=== PATIENT | female | born 1930 | race Caucasian/White ===

== ENCOUNTER 2018-03-15 11:55 | Inpatient (IN) | payer MEDICARE, BC ==
[~2018-03-15] VITALS: Ht 162.6 cm; Wt 68.9 kg
--- NOTE | 2018-03-15 12:15 | NUR ---
PT IS IN ROOM #1A. DR NOWAK EVALUATED THE PT.
[2018-03-15] MEDS ORDERED: LORAZEPAM 2 MG/1 ML VIAL IV ONE (13:15)
[2018-03-15] MEDS ORDERED: IV NORMAL SALINE 1000 ML BAG IV ONE (13:15)
[2018-03-15] MEDS ORDERED: LORAZEPAM 2 MG/1 ML VIAL ONE (13:23)
[2018-03-15] MEDS ORDERED: PRESERVISION (13:32)
[2018-03-15] MEDS ORDERED: CALC-11 PO (13:32)
[2018-03-15] MEDS ORDERED: LORA0.5T PO (13:32)
[2018-03-15] MEDS ORDERED: SIMV10TA6 PO (13:32)
[2018-03-15] MEDS ORDERED: NEOM500T PO (13:32)
[2018-03-15] MEDS ORDERED: LOSA50TA21 PO (13:32)
[2018-03-15] MEDS ORDERED: ACET-2154 PO (13:32)
[2018-03-15] MEDS ORDERED: MIRALAX PO (13:32)
[2018-03-15] MEDS ORDERED: VITAMIN B12 PO (13:32)
[2018-03-15] MEDS ORDERED: CYPR4TAB34 PO (13:32)
[2018-03-15] MEDS ORDERED: LEVO88TA5 PO (13:32)
[2018-03-15] MEDS ORDERED: TRAZ-147 PO (13:32)
[2018-03-15] MEDS ORDERED: BISA10SU12 RC (13:32)
[2018-03-15 13:44] LABS: BASOPHILS # (AUTO) 0.1 K/uL (0.0-8.0); BASOPHILS % (AUTO) 1.2 % (0.0-2.0); EOSINOPHILS # (AUTO) 0.1 K/uL (0.0-0.7); EOSINOPHILS % (AUTO) 1.7 % (0.0-7.0); HEMATOCRIT 39.2 % (31.2-41.9); HEMOGLOBIN 13.6 g/dL (10.9-14.3); LYMPHOCYTES # (AUTO) 1.4 K/uL (20.0-40.0); LYMPHOCYTES % (AUTO) 23.4 % (20.5-51.5); MEAN CORPUSCULAR HEMOGLOBIN 31.2 uug (24.7-32.8); MEAN CORPUSCULAR HGB CONC 35 g/dL (32.3-35.6); MEAN CORPUSCULAR VOLUME 90.2 fL (75.5-95.3); MONOCYTES # (AUTO) 0.5 K/uL (2.0-10.0); MONOCYTES % (AUTO) 8.9 % (0.0-11.0); NEUTROPHILS # (AUTO) 3.9 K/uL (1.8-8.9); NEUTROPHILS % (AUTO) 64.8 % (38.5-71.5); PLATELET COUNT (AUTO) 185 K/uL (179-408); RED BLOOD CELL COUNT(AUTO) 4.35 MIL/uL (3.63-4.92); WHITE BLOOD COUNT (AUTO) 6.1 K/uL (3.8-11.8)
[2018-03-15 14:05] LABS: ALANINE AMINOTRANSFERASE 92 U/L (14-59); ALKALINE PHOSPHATASE 77 U/L (50-136); ASPARTATE AMINOTRANSFERASE 37 U/L (15-37); BILIRUBIN,DIRECT 0.3 mg/dL (0.0-0.2); CARBON DIOXIDE 26 mmol/L (21-32); CHLORIDE 107 mmol/L (98-107); CREATININE 1.1 mg/dL (0.6-1.3); GLUCOSE 103 mg/dL (74-106); UREA NITROGEN, BLOOD 16 mg/dL (7-18)
--- NOTE | 2018-03-15 14:48 | NUR ---
REPORT WAS GIVEN TO BRUSHER WARP. PT WAS TRANSFERED TO ROOM #205.
--- NOTE | 2018-03-15 15:30 | NUR ---
received from ER awake alert and oriented, per stretcher with c/o of abdominal pain and chest pain but states "none at this time after i was given medicine in er", tele applied SR 80's, on room air- denies of shortness of breath, routine admission care rendered, oriented to bed controls and room, safety measures provided, call light within reach
[2018-03-15 15:43] VITALS: BP 149/61
[2018-03-15] MEDS ORDERED: LORAZEPAM 0.5 MG TABLET PO PRN (17:00)
[2018-03-15] MEDS ORDERED: CYPROHEPTADINE HCL 4 MG TABLET PO SCH (17:00)
[2018-03-15] MEDS ORDERED: HOME MED MISCELLANEOUS XX SCH ×3 (17:15)
[2018-03-15] MEDS ORDERED: ONDANSETRON 4 MG/2 ML VIAL IV PRN (17:15)
[2018-03-15] MEDS ORDERED: ZOLPIDEM 5 MG TABLET PO PRN (17:15)
[2018-03-15] MEDS ORDERED: ACET-2030 PO (18:57)
[2018-03-15] MEDS ORDERED: POLY17PO4 PO (18:58)
[2018-03-15] MEDS: IV NS 1000 ML 1,000 ML IV PRN (19:34)
[2018-03-15 20:00] VITALS: BP 136/51
--- NOTE | 2018-03-15 20:00 | NUR ---
nsg: pt received a/ox 4, denies pain or any dicomfort. tele, SB. ambulatory with assistance. on cont ivf. call light within reach.
[2018-03-15] MEDS: SIMVASTATIN 10 MG TABLET PO SCH (20:37)
[2018-03-15] MEDS: TRAZODONE 100 MG TABLET PO SCH (20:37)
[2018-03-15] MEDS: ACETAMINOPHEN ES 500 MG TABLET PO SCH ×3 (20:37→22:45)
[2018-03-15] MEDS ORDERED: ACETAMINOPHEN 325 MG TABLET PO SCH (21:00)
[2018-03-15] MEDS ORDERED: ACETAMINOPHEN ES 500 MG TABLET ONE (22:41)
--- NOTE | 2018-03-15 23:30 | NUR ---
nsg: pt is very anxious, frustrated, received an order for ativan ivp. tele, SR. cont to monitor.
[2018-03-16] VITALS: BP 146/56
[2018-03-16] MEDS: LORAZEPAM 2 MG/1 ML VIAL IV PRN ×3 (00:07→15:03)
--- NOTE | 2018-03-16 00:07 | NUR ---
nsg: pt received 0.5mg ivp ativan due to severe anxiety. cont to monitor.
--- NOTE | 2018-03-16 01:00 | NUR ---
nsg: pt resting comfortably. SR charles.
[2018-03-16 05:06] VITALS: BP 144/63
--- NOTE | 2018-03-16 06:00 | NUR ---
nsg: all needs attended. pt still asleep. tele, SR. v/s stable. cont with treatment plan.
--- NOTE | 2018-03-16 06:36 | NUR ---
nsg: pt refused to take levothyroxine at this time. per pt will take med at a later time.
--- NOTE | 2018-03-16 07:15 | NUR ---
RECEIVED SHIFT REPORT FROM TELEGRAPHIC INSTRUMENT SUPERVISOR NURSE. PATIENT RESTING COMFORTABLY IN BED AT THIS TIME, NO S/S OF DISTRESS. STABLE CONDITION. INFORMED THAT PATIENT HAD SEVERE ANXIETY DURING THE TELEGRAPHIC INSTRUMENT SUPERVISOR AND ATIVAN IV 0.5 MG Q6HPRN WAS ORDERED, WHICH HELPED PATIENT CALM DOWN. BED ALARM IS ON, CALL LIGHT WITHIN REACH.
[2018-03-16] MEDS: LEVOTHYROXINE SODIUM 88 MCG TABLET PO SCH (07:31)
[2018-03-16 08:09] VITALS: BP 153/60
[2018-03-16] MEDS: CYANOCOBALAMIN 1,000 MCG TABLET PO SCH (08:11)
[2018-03-16] MEDS: MIRALAX 17 GM POWD.PACK PO SCH (08:11)
[2018-03-16] MEDS: CALCIUM CARB/VITAMIN D 600-400 MG TABLET PO SCH (08:11)
[2018-03-16] MEDS: ASPIRIN EC 81 MG TABLET.DR PO SCH (08:33)
[2018-03-16] MEDS ORDERED: LOSARTAN POTASSIUM 50 MG TABLET PO SCH (09:00)
[2018-03-16] MEDS ORDERED: NEOMYCIN SULFATE 500 MG TABLET PO SCH (09:00)
[2018-03-16 09:11] LABS: BASOPHILS # (AUTO) 0.1 K/uL (0.0-8.0); BASOPHILS % (AUTO) 1.4 % (0.0-2.0); EOSINOPHILS # (AUTO) 0.1 K/uL (0.0-0.7); EOSINOPHILS % (AUTO) 3.3 % (0.0-7.0); LYMPHOCYTES # (AUTO) 1.3 K/uL (20.0-40.0); LYMPHOCYTES % (AUTO) 33.6 % (20.5-51.5); MEAN CORPUSCULAR HEMOGLOBIN 30.9 uug (24.7-32.8); MEAN CORPUSCULAR HGB CONC 34 g/dL (32.3-35.6); MEAN CORPUSCULAR VOLUME 90.4 fL (75.5-95.3); MONOCYTES # (AUTO) 0.3 K/uL (2.0-10.0); MONOCYTES % (AUTO) 8.5 % (0.0-11.0); NEUTROPHILS # (AUTO) 2.1 K/uL (1.8-8.9); NEUTROPHILS % (AUTO) 53.2 % (38.5-71.5); PLATELET COUNT (AUTO) 159 K/uL (179-408); RED BLOOD CELL COUNT(AUTO) 4.21 MIL/uL (3.63-4.92); WHITE BLOOD COUNT (AUTO) 3.9 K/uL (3.8-11.8)
[2018-03-16 09:40] LABS: THYROID STIMULATING HORMONE 0.282 mIU/mL (0.358-3.740)
[2018-03-16 09:59] LABS: ALANINE AMINOTRANSFERASE 69 U/L (14-59); ALKALINE PHOSPHATASE 60 U/L (50-136); ASPARTATE AMINOTRANSFERASE 27 U/L (15-37); BILIRUBIN,TOTAL 0.7 mg/dL (0.2-1.0); CARBON DIOXIDE 24 mmol/L (21-32); CHLORIDE 107 mmol/L (98-107); GLUCOSE 110 mg/dL (74-106); POTASSIUM 3.7 mmol/L (3.5-5.1); UREA NITROGEN, BLOOD 14 mg/dL (7-18)
[2018-03-16 11:04] VITALS: BP 124/53
[2018-03-16 15:23] VITALS: BP_SYST 124; BP_SYST 138; BP_DIAS 53; BP_DIAS 87
[2018-03-16] MEDS: PANTOPRAZOLE SODIUM 40 MG TABLET.DR PO SCH (17:05)
[2018-03-16] MEDS: IV NS 1000 ML 1,000 ML IV PRN (19:10)
[2018-03-16 19:39] VITALS: BP 145/73
--- NOTE | 2018-03-16 20:00 | NUR ---
AWAKE ON AND OFF QUIET RESTING COMFORTABLY.BACK TO SLEEP. TELEMETRY SINUS RHYTHM.
[2018-03-16] MEDS: BISACODYL 10 MG SUPP.RECT RC SCH (20:13)
[2018-03-16] MEDS: TRAZODONE 100 MG TABLET PO SCH (20:13)
[2018-03-16] MEDS: SIMVASTATIN 10 MG TABLET PO SCH (20:13)
[2018-03-16 20:21] LABS: *BILIRUBIN,URIN NEGATIVE (NEGATIVE); *BLOOD, URINE NEGATIVE (NEGATIVE); *CLARITY,URINE CLEAR (CLEAR); *COLOR,URINE YELLOW (YELLOW); *KETONES,URINE NEGATIVE (NEGATIVE); *PROTEIN,URINE NEGATIVE (NEGATIVE); *UROBILINOGEN,URINE 0.2 E.U./dl (NORMAL); LEUKOCYTE ESTERASE ,URINE NEGATIVE (NEGATIVE); NITRITE, URINE NEGATIVE (NEGATIVE); UGLUCOSE NEGATIVE (NEGATIVE)
[2018-03-16 20:32] LABS: SQUAMOUS EPITHELIAL CELL,UR FEW /HPF (NONE SEEN); WBC,URINE 0-3 /HPF (0-3)
[2018-03-17] VITALS: BP 144/67
[2018-03-17] MEDS: LORAZEPAM 2 MG/1 ML VIAL IV PRN ×2 (02:50→08:55)
[2018-03-17 04:00] VITALS: BP 154/59
[2018-03-17] MEDS: PANTOPRAZOLE SODIUM 40 MG TABLET.DR PO SCH ×2 (06:32→16:49)
[2018-03-17] MEDS: LEVOTHYROXINE SODIUM 88 MCG TABLET PO SCH (06:32)
--- NOTE | 2018-03-17 07:10 | NUR ---
Received report from night shift supervisor nurse, patient in bed asleep, no distress noted at this time, bed in low position, side rails up x2. Call light in reach.
[2018-03-17] MEDS: CALCIUM CARB/VITAMIN D 600-400 MG TABLET PO SCH (08:51)
[2018-03-17] MEDS: LOSARTAN POTASSIUM 50 MG TABLET PO SCH ×2 (08:54→16:49)
[2018-03-17] MEDS: ASPIRIN EC 81 MG TABLET.DR PO SCH (08:55)
[2018-03-17] MEDS: MIRALAX 17 GM POWD.PACK PO SCH (08:55)
[2018-03-17] MEDS: CYANOCOBALAMIN 1,000 MCG TABLET PO SCH (08:55)
--- NOTE | 2018-03-17 09:30 | NUR ---
Patient is very anxious, yelling for help, and continuously asking for "medication that is put in her IV that was given to her in ER". Patient was given ativan.
[2018-03-17 11:04] VITALS: BP 136/64
[2018-03-17 15:18] VITALS: BP 141/56
[2018-03-17] MEDS: IV NS 1000 ML 1,000 ML IV PRN (16:44)
--- NOTE | 2018-03-17 17:46 | NUR ---
patient has been very anxious and requesting medication frequently to make her sleep. Patient complains of not getting any rest despite frequently napping. Currently patient in bed, no distress noted, eating dinner. bed in low position, side rails up x2.
--- NOTE | 2018-03-17 19:10 | NUR ---
RECIEVED PT ASLEEP ON BED. PT SHOWS NO SIGNS OF DISTRESS. PT IV INTACT AND PATENT. CALL LIGHT WITHIN REACH. BED ALARM ON AND IN LOW POSITION. WILL CONTINUE TO MONITOR.
[2018-03-17 20:12] VITALS: BP 125/60
[2018-03-17] MEDS: ACETAMINOPHEN ES 500 MG TABLET PO SCH (21:29)
[2018-03-17] MEDS: TRAZODONE 100 MG TABLET PO SCH (21:29)
[2018-03-17] MEDS: MIRTAZAPINE 15 MG TABLET PO SCH (21:29)
[2018-03-17] MEDS: SIMVASTATIN 10 MG TABLET PO SCH (21:29)
[2018-03-18] MEDS: QUETIAPINE FUMARATE 25 MG TABLET PO PRN ×2 (04:02→12:06)
[2018-03-18 05:18] VITALS: BP 130/62
--- NOTE | 2018-03-18 06:09 | NUR ---
PT SLEPT THROUGHOUT THE SHIFT. PT SHOWS NO SIGNS OF DISTRESS. PT VITAL SIGNS WITHIN NORMAL LIMIT. PRESCRIBED MEDICATION GIVEN AND PT TOLERATED IT WELL.PT WOKE UP AT 4AM ASKING FOR PAIN MEDICATION BECAUSE SHE STATE HER LEGS ARE ACHING AND SHE WAS AWAKE THE WHOLE NIGHT BECAUSE OF THE PAIN, BUT PT WAS SLEEPING THE WHOLE NIGHT. AT 520AM PT STATE SHE HAS A TERRIBLE SHOULDER PAIN BUT WHEN I GOT BACK TO HER, SHE IS SLEEPING SOUNDLY. NOTIFY DOCTOR OF THE PAIN OF THE PT AND ASK IF SHE WILL GIVE ORDER FOR PAIN MEDICATION. STILL AWAITING FOR THE DOCTOR REPLY. CALL LIGHT WITHIN REACH, BED ALARM ON AND IN LOW POSITION. SIDE RAILSX2. WILL ENDORSE TO DAYSHIFT NURSE.
[2018-03-18] MEDS: LEVOTHYROXINE SODIUM 88 MCG TABLET PO SCH (06:22)
[2018-03-18] MEDS: PANTOPRAZOLE SODIUM 40 MG TABLET.DR PO SCH ×2 (06:22→16:12)
--- NOTE | 2018-03-18 07:10 | NUR ---
Received report from casino shift manager nurse, patient in bed sleeping, no distress noted, bed in low position, side rails up x2.
[2018-03-18] MEDS: CYANOCOBALAMIN 1,000 MCG TABLET PO SCH (08:24)
[2018-03-18] MEDS: ASPIRIN EC 81 MG TABLET.DR PO SCH (08:24)
[2018-03-18] MEDS: CALCIUM CARB/VITAMIN D 600-400 MG TABLET PO SCH (08:24)
[2018-03-18] MEDS: LOSARTAN POTASSIUM 50 MG TABLET PO SCH ×2 (08:24→16:11)
[2018-03-18] MEDS: MIRALAX 17 GM POWD.PACK PO SCH (08:24)
[2018-03-18 11:26] VITALS: BP 132/66
[2018-03-18] MEDS ORDERED: MAG HYDROX/AL HYDROX/SIMETH 30 ML LIQUID UDC PO PRN (15:45)
[2018-03-18 15:46] VITALS: BP 137/80
[2018-03-18] MEDS: FAMOTIDINE 20 MG TABLET PO SCH (16:08)
--- NOTE | 2018-03-18 18:53 | NUR ---
Patient has been cooperative with care. She had two episodes where she had severe pain and anxiety. Contacted Dr. Almendarez, and received orders for pepcid and mylanta. Currently patient is in no distress, bed in low position, side rails up x2. Bed alarm Set.
[2018-03-18] MEDS: IV NS 1000 ML 1,000 ML IV PRN (19:02)
--- NOTE | 2018-03-18 19:05 | NUR ---
RECEIVED PT AWAKE, ALERT, ORIENTEDX3. PT SHOWS NO SIGNS OF ACUTE DISTRESS. PT VITAL SIGNS WITHIN NORMAL LIMIT. PT IV INTACT AND PATENT. CALL LIGHT WITHIN REACH. BED ALARM ON AND IN LOW POSITION, SIDE RAILSX2. WILL CONTINUE TO MONITOR.
[2018-03-18 20:15] VITALS: BP 132/41
[2018-03-18] MEDS: BISACODYL 10 MG SUPP.RECT RC SCH ×2 (21:00→21:12)
--- NOTE | 2018-03-18 21:10 | NUR ---
PT REFUSED MEDICATION FOR DULCOLAX SUPPOSITORY.
[2018-03-18] MEDS: ACETAMINOPHEN ES 500 MG TABLET PO SCH (21:12)
[2018-03-18] MEDS: TRAZODONE 100 MG TABLET PO SCH (21:12)
[2018-03-18] MEDS: SIMVASTATIN 10 MG TABLET PO SCH (21:12)
[2018-03-18] MEDS: MIRTAZAPINE 15 MG TABLET PO SCH (21:12)
[2018-03-19] MEDS: QUETIAPINE FUMARATE 25 MG TABLET PO PRN (03:49)
[2018-03-19 04:23] VITALS: BP 148/48
--- NOTE | 2018-03-19 06:19 | NUR ---
PT SLEPT THROUGHOUT THE SHIFT. PT SHOWS NO SIGNS OF DISTRESS. PT IV INTACT AND PATENT. PRESCRIBED MEDICATION GIVEN AND PT TOLERATED IT WELL. PT STABLE. CALL LIGHT WITHIN REACH. BED ALARM ON AND IN LOW POSITION, SIDE RAILSX2.PT IS WORRIED WHERE SHE WOULD STAY AND WHO WOULD TAKE CARE OF HER. WILL ENDORSE TO DAYSHIFT NURSE.
[2018-03-19] MEDS: LEVOTHYROXINE SODIUM 88 MCG TABLET PO SCH (06:22)
[2018-03-19] MEDS: PANTOPRAZOLE SODIUM 40 MG TABLET.DR PO SCH (06:22)
[2018-03-19] MEDS: ASPIRIN EC 81 MG TABLET.DR PO SCH (08:16)
[2018-03-19] MEDS: LOSARTAN POTASSIUM 50 MG TABLET PO SCH (08:17)
[2018-03-19] MEDS: MIRALAX 17 GM POWD.PACK PO SCH (08:17)
[2018-03-19] MEDS: CYANOCOBALAMIN 1,000 MCG TABLET PO SCH (08:17)
[2018-03-19] MEDS: CALCIUM CARB/VITAMIN D 600-400 MG TABLET PO SCH (08:17)
[2018-03-19] MEDS: FAMOTIDINE 20 MG TABLET PO SCH (08:17)
[2018-03-19] MEDS: BISACODYL 10 MG SUPP.RECT RC SCH (09:24)
[2018-03-19] MEDS ORDERED: MAGNESIUM CITRATE 296 ML BOTTLE PO ONE (10:30)
[2018-03-19 11:17] VITALS: BP 149/51
[2018-03-19 13:10] VITALS: BP 149/51
--- NOTE | 2018-03-19 13:30 | NUR ---
PT had a large bm from the mag citrate given earlier. Pt states she is more relieved. Pt D/C pt to [facility] as ordered per DR lu. Dennys son aware of d/c plan via child support case officer. Pt's iv d/c. Pt is in no acute distress upon discharge.
[2018-03-19] MEDS ORDERED: FAMO-132 PO (14:52)
[2018-03-19] MEDS ORDERED: MIRT15TA PO (15:05)
[2018-03-19] MEDS ORDERED: ASPI-605 PO (15:05)
[2018-03-19] MEDS ORDERED: QUET25TA PO (15:05)
[2018-03-19] MEDS ORDERED: PANT40TA2 PO (15:05)
[2018-03-20] MEDS ORDERED: QUETIAPINE FUMARATE 25 MG TABLET PO SCH (15:00)
[2018-03-20] MEDS ORDERED: MIRTAZAPINE 15 MG TABLET PO SCH (21:00)
== END 2018-03-19 13:45 | DRG 206 ==
LOC: ER 11:55 → TELE 14:40 → MED 03-17 10:30
PROVIDERS: ADMIT Internal Medicine; ATTEND Internal Medicine
DX: M94.0 Chondrocostal junction syndrome [Tietze] (principal); F33.1 Major depressive disorder, recurrent, moderate; F41.1 Generalized anxiety disorder; G47.00 Insomnia, unspecified; R10.13 Epigastric pain; Z88.0 Allergy status to penicillin; Z79.899 Other long term (current) drug therapy; Z88.2 Allergy status to sulfonamides; I10 Essential (primary) hypertension
CPT/HCPCS: 36415; 70030-TC; 71045; 82533; 84443; 85025; 85651; 85730; 93005; 93307; 97116; A4663; A9150; J2060; J7030

== ENCOUNTER 2018-03-19 14:28 | Inpatient (IN) | payer MEDICARE, BC ==
[~2018-03-19] VITALS: Ht 165.1 cm; Wt 69.4 kg
--- NOTE | 2018-03-19 14:05 | NUR ---
ADMISSION NOTES: 87 Y.O FEMALE BROUGHT TO MHU FROM MEDICAL SURGICAL UNIT VIA WHEELCHAIR, ACCOMPANIED BY MED SURG STAFF, Pt IS ADMITTED VOLUNTARILY. Pt WAS INITIALLY ADMITTED TO MEDICAL SURGICAL UNIT DUE TO COMPLAINTS OF CHEST PAIN. HOWEVER, NO NEGATIVE FINDINGS WERE NOTED DURING HER STAY IN THE UNIT. UPON PSYCHIATRIC EVALUATION, Pt STATED BEING ANXIOUS DUE TO CONSTANTLY BEING HOSPITALIZED AND THEY CANNOT DETERMINE THE REASONS FOR HER NECK PAIN. SHE REPORTED POOR ENERGY LEVELS AND INSOMNIA. UPON FACE TO FACE ASSESSMENT, Pt APPEARS TO REFLECT THE DETAILS FROM THE PSYCHIATRIC CONSULTATION. Pt CURRENTLY REPORTS BEING SAD AND ANXIOUS, IS TEARFUL AT TIMES DURING THE INTERVIEW DUE TO NOT BEING ABLE TO KEEP HER BELONGINGS IN HER ROOM. DENIES SUICIDAL IDEATION AND AGREED TO CONTRACT FOR SAFETY INSIDE THE HOSPITAL. Pt APPEARS WELL GROOMED WITH CLEAR SPEECH AND HER SKIN IS INTACT. A/O X 3 BUT IS FORGETFUL AT TIMES. DENIES PAIN AT THIS TIME AND NO AGGRESSIVE BEHAVIORS NOTED. DR. FRANKLIN AND DR. MARSH HAVE BEEN NOTIFIED OF ADMISSION, ORDERS RECEIVED. Pt ORIENTED TO UNIT AND EDUCATED ON UNIT RULES. CONTRABAND AND BELONGINGS PLACED IN LOCKERS. ADMINISTERED KLONOPIN 0.5 MG PO PRN FOR ANXIETY WITH GOOD EFFECTS.Pt'S SISTER, RULA, HAS BEEN NOTIFIED OF Pt'S ADMISSION.
[~2018-03-19 14:28] MED LIST: ACET-2030 PO; BISA10SU12 RC; CALC-11 PO; LEVO88TA5 PO; LORA0.5T PO; LOSA50TA21 PO; POLY17PO4 PO; PRESERVISION; SIMV10TA6 PO; TRAZ-147 PO; VITAMIN B12 PO
[2018-03-19] MEDS ORDERED: FAMO-132 PO (14:52)
[2018-03-19] MEDS ORDERED: QUET25TA PO (15:05)
[2018-03-19] MEDS ORDERED: ASPI-605 PO (15:05)
[2018-03-19] MEDS ORDERED: MIRT15TA PO (15:05)
[2018-03-19] MEDS ORDERED: PANT40TA2 PO (15:05)
[2018-03-19] MEDS ORDERED: MAGNESIUM HYDROXIDE 30 ML LIQUID UDC PO PRN (15:15)
[2018-03-19] MEDS: CLONAZEPAM 0.5 MG TABLET PO PRN (16:03)
[2018-03-19 16:22] VITALS: BP 136/71
[2018-03-19] MEDS: PANTOPRAZOLE SODIUM 40 MG TABLET.DR PO SCH (17:15)
[2018-03-19 20:00] VITALS: BP 123/74
[2018-03-19] MEDS: LOSARTAN POTASSIUM 50 MG TABLET PO SCH (20:06)
[2018-03-19] MEDS: SIMVASTATIN 10 MG TABLET PO SCH (20:07)
[2018-03-19] MEDS: TEMAZEPAM 7.5 MG CAPSULE PO PRN (21:03)
[2018-03-20] MEDS: LEVOTHYROXINE SODIUM 88 MCG TABLET PO SCH (06:07)
[2018-03-20] MEDS: PANTOPRAZOLE SODIUM 40 MG TABLET.DR PO SCH ×2 (06:49→17:01)
--- NOTE | 2018-03-20 06:55 | NUR ---
RECEIVED Pt IN HER ROOM CONVERSING WITH HER ROOMMATE. Pt IMMEDIATELY BEGAN DEMANDING SEVERAL ITEMS INCLUDING MULTIPLE HYGEINE ITEMS, CHUCKS, BLANKETS, MAKE-UP, FACE CREAM, MEDICATIONS, AND SNACKS. Pt HAD MULTIPLE COMPLAINTS REGARDING HER CURRENT HOSPITAL STAY, STATING, JOSE CLE[facility] IS SO MUCH BETTER, THIS PLACE IS A DUMP. COMPLIANT WITH HS MEDS, RESQUESTED SLEEP MEDICATION FOR C/O INSOMNIA. RESTORIL 7.5mg ADMINISTERED WITH GOOD EFFECT. Pt ATTEMPTS TO STAFF SPLIT AND ALIGN WITH SELECT STAFF, COMPLAINING THE THE DAY SHIFT NURSE IS JUST VERY MEAN, HE TREATED ME LIKE TRASH. Pt REDIRECTED. Pt DENIES SI AND CFS. DENIES AH/VH, Pt STATES SHE IS JUST VERY ANXIOUS BECAUSE SHE HAS LITTLE FAMILY SUPPORT. Pt IS HYPERVERBAL WITH PRESSURED SPEECH. Pt IS NEEDY, ATTENTION-SEEKING, AND CIRCUMSTANTIAL IN THOUGHT PROCESS. A+Ox3, VS STABLE, DENIES PAIN, IN NO ACUTE PHYSICAL DISTRESS. REFUSED SHOWER. REPORTED 1 BM. SLEPT 6.45 HOURS.
[2018-03-20 07:30] VITALS: BP 168/67
--- NOTE | 2018-03-20 07:30 | NUR ---
Bedside report given by nightshift RN. Pt stable. No significant change in condition last night. Pt in bed, asleep. Easily arousable to name. Breathing even and unlabored. Appears comfortable. Will continue to monitor.
[2018-03-20 07:55] LABS: BASOPHILS # (AUTO) 0.1 K/uL (0.0-8.0); BASOPHILS % (AUTO) 1.2 % (0.0-2.0); EOSINOPHILS # (AUTO) 0.2 K/uL (0.0-0.7); EOSINOPHILS % (AUTO) 2.8 % (0.0-7.0); HEMATOCRIT 41.6 % (31.2-41.9); HEMOGLOBIN 14.2 g/dL (10.9-14.3); LYMPHOCYTES # (AUTO) 1.2 K/uL (20.0-40.0); LYMPHOCYTES % (AUTO) 22.6 % (20.5-51.5); MEAN CORPUSCULAR HEMOGLOBIN 30.8 uug (24.7-32.8); MEAN CORPUSCULAR HGB CONC 34 g/dL (32.3-35.6); MONOCYTES # (AUTO) 0.4 K/uL (2.0-10.0); MONOCYTES % (AUTO) 7.8 % (0.0-11.0); NEUTROPHILS # (AUTO) 3.5 K/uL (1.8-8.9); NEUTROPHILS % (AUTO) 65.6 % (38.5-71.5); PLATELET COUNT (AUTO) 184 K/uL (179-408); RED BLOOD CELL COUNT(AUTO) 4.62 MIL/uL (3.63-4.92); WHITE BLOOD COUNT (AUTO) 5.4 K/uL (3.8-11.8)
[2018-03-20 08:10] LABS: THYROID STIMULATING HORMONE 0.184 mIU/mL (0.358-3.740)
[2018-03-20 08:49] LABS: ALANINE AMINOTRANSFERASE 76 U/L (14-59); ALKALINE PHOSPHATASE 69 U/L (50-136); ASPARTATE AMINOTRANSFERASE 35 U/L (15-37); BILIRUBIN,TOTAL 1.1 mg/dL (0.2-1.0); CARBON DIOXIDE 27 mmol/L (21-32); CHLORIDE 105 mmol/L (98-107); CREATININE 1.1 mg/dL (0.6-1.3); GLUCOSE 99 mg/dL (74-106); TOTAL PROTEIN, SERUM 6.9 g/dL (6.4-8.2); UREA NITROGEN, BLOOD 14 mg/dL (7-18)
[2018-03-20] MEDS ORDERED: FAMOTIDINE 20 MG TABLET PO SCH (09:00)
[2018-03-20] MEDS: ASPIRIN EC 81 MG TABLET.DR PO SCH (09:15)
[2018-03-20] MEDS: CLONAZEPAM 0.5 MG TABLET PO PRN ×3 (09:15→23:22)
[2018-03-20] MEDS: CALCIUM CARB/VITAMIN D 600-400 MG TABLET PO SCH (09:15)
[2018-03-20] MEDS: MIRALAX 17 GM POWD.PACK PO SCH (09:16)
[2018-03-20] MEDS: CYANOCOBALAMIN 1,000 MCG TABLET PO SCH (09:16)
[2018-03-20] MEDS: LOSARTAN POTASSIUM 50 MG TABLET PO SCH ×2 (09:16→20:16)
[2018-03-20] MEDS: MAG HYDROX/AL HYDROX/SIMETH 30 ML LIQUID UDC PO PRN ×2 (09:16→14:35)
[2018-03-20] MEDS: ACETAMINOPHEN 325 MG TABLET PO PRN ×2 (10:52→22:33)
--- NOTE | 2018-03-20 14:42 | NUR ---
Firearms Report: Technology Education Teacher completed and submitted [employer] Firearms Report on 03/20/18.
--- NOTE | 2018-03-20 15:20 | NUR ---
Pt seen and examined by Dr. Ortiz. Relayed to MD that pt has been very anxious and displaying attention seeking behavior from staff. Pt with behavior of walking up to nursing station asking for several things at a time. Pt inconsolable. Able to redirect pt back to her room, refuses to attend activities, but returns to nursing station again. Pt with new order for Seroquel and Remeron. Pt aware.
[2018-03-20 15:21] VITALS: BP 150/58
[2018-03-20] MEDS: QUETIAPINE FUMARATE 25 MG TABLET PO SCH ×2 (15:46→20:18)
--- NOTE | 2018-03-20 16:30 | NUR ---
Pt seen and examined by Dottie Valentin NP. Rec'd verbal order for STAT Amylase, Lipase, LFT, Total and Direct Bilirubin levels, Routine Stool OBx1, and to Obtain records from [facility] from Nov 2017-Present for EGD, MRI, and Colonoscopy results. Verbal order verified and read back to Dottie. All new orders noted and carried out. Pt made aware.
[2018-03-20 17:48] LABS: BILIRUBIN,DIRECT 0.2 mg/dL (0.0-0.2); BILIRUBIN,TOTAL 0.9 mg/dL (0.2-1.0); TOTAL PROTEIN, SERUM 6.4 g/dL (6.4-8.2)
[2018-03-20 20:00] VITALS: BP 134/66
--- NOTE | 2018-03-20 20:10 | NUR ---
RECEIVED PATIENT IN THE DAYROOM, SHE IS NOTED A/O X 3 ABLE TO AMBULATE WITH STEADY GAIT. PATIENT WAS TOLD OF TRANSFER TO 2ND FLOOR OVERFLOW. SHE AGREED; PATIENT WAS GIVEN ALL HER QHS MEDICATION. AWAITING TO A ROOM #. SAFETY WAS EMPHASIS. WILL CONTINUE TO MONITOR.
[2018-03-20] MEDS: SIMVASTATIN 10 MG TABLET PO SCH (20:16)
[2018-03-20] MEDS: MIRTAZAPINE 15 MG TABLET PO SCH (20:17)
--- NOTE | 2018-03-20 21:05 | NUR ---
RECEIVED PATIENT AWAKE, ALERT, ORIENTED,COOPERATIVE,APPEARS DEPRESSED,SADNESS,SLIGHTLY ANXIOUS,WORRY ABOUT UNABLE TO SLEEP, EXPLAINED TO PATIENT THAT SHE RECEIVED RESTORIL FOR SLEEPING ALREADY, SHE WILL BE OK.ORIENTED PATIENT TO ROOM AND REASSURANCE.
--- NOTE | 2018-03-20 21:05 | NUR ---
PATIENT WAS TRANSFER TO 2ND FLOOR [facility] WITH ALL HER BELONGINGS. REPORT GIVEN TO UDAY SILVER. PT NOTED IN STABLE CONDITION IN NO ACUTE DISTRESS.
--- NOTE | 2018-03-21 06:49 | NUR ---
PATIENT SLEEP WELL,6.5 HOURS /SHIFT, COMPLIANT WITH MEDS AND CARE.
[2018-03-21] MEDS: LEVOTHYROXINE SODIUM 88 MCG TABLET PO SCH (07:01)
[2018-03-21] MEDS: PANTOPRAZOLE SODIUM 40 MG TABLET.DR PO SCH ×2 (07:01→17:35)
--- NOTE | 2018-03-21 07:56 | NUR ---
Receive pt awake, alert and oriented times 3. Pt states no pain at this time but when she does experience pain, "its unbelievable" pointing to her mid abdomen. No immediate s/s of SOB, distress or discomfort. Pt would like her plan of care and discharge, will FU with case management and doctors.
--- NOTE | 2018-03-21 08:34 | NUR ---
Report given to day shift nurse
[2018-03-21 08:52] VITALS: BP 156/56
[2018-03-21] MEDS: BISACODYL 10 MG SUPP.RECT RC SCH (08:56)
[2018-03-21] MEDS: CALCIUM CARB/VITAMIN D 600-400 MG TABLET PO SCH (09:13)
[2018-03-21] MEDS: ACETAMINOPHEN 325 MG TABLET PO PRN (09:17)
[2018-03-21] MEDS: CYANOCOBALAMIN 1,000 MCG TABLET PO SCH (09:19)
[2018-03-21] MEDS: LOSARTAN POTASSIUM 50 MG TABLET PO SCH ×2 (09:19→20:51)
[2018-03-21] MEDS: QUETIAPINE FUMARATE 25 MG TABLET PO SCH ×2 (09:20→20:51)
[2018-03-21] MEDS: MIRALAX 17 GM POWD.PACK PO SCH (09:20)
[2018-03-21] MEDS: ASPIRIN EC 81 MG TABLET.DR PO SCH (09:20)
[2018-03-21] MEDS: CLONAZEPAM 0.5 MG TABLET PO PRN ×2 (15:47→20:51)
[2018-03-21 16:09] VITALS: BP 164/81
--- NOTE | 2018-03-21 16:26 | NUR ---
Initial DC Instructions: Patient is currently residing at the [facility] [[address] [place] [address]; ]. Per patient, she would like short-term rehab before she returns there. Patient expressed interest in the [facility]. SW faxed inquiry, and awaiting response. Spoke with pt's son, Dennys Calixto ([phone]) who agrees with pt's wishes for short-term rehab. Per son, patient is also able to live with him if all other options are exhausted. JOHN PAUL will continue to collaborate with pt, family, and MD regarding appropriate discharge plan. SW will form a safe and proper discharge plan.
[2018-03-21 16:57] LABS: *OCCULT BLOOD STOOL NEGATIVE (NEGATIVE)
[2018-03-21 20:08] VITALS: BP 127/61
[2018-03-21] MEDS: MIRTAZAPINE 15 MG TABLET PO SCH (20:51)
[2018-03-21] MEDS: TEMAZEPAM 7.5 MG CAPSULE PO PRN (20:51)
[2018-03-21] MEDS: SIMVASTATIN 10 MG TABLET PO SCH (20:51)
[2018-03-22 05:16] VITALS: BP 173/87
[2018-03-22] MEDS: CLONAZEPAM 0.5 MG TABLET PO PRN (05:54)
[2018-03-22] MEDS: LEVOTHYROXINE SODIUM 88 MCG TABLET PO SCH (06:00)
[2018-03-22] MEDS: PANTOPRAZOLE SODIUM 40 MG TABLET.DR PO SCH ×2 (06:30→15:41)
[2018-03-22 06:36] VITALS: BP 113/56
--- NOTE | 2018-03-22 06:36 | NUR ---
Pt slept well through the night. Slept 6 hours. Was very anxious last night because she thought she wouldn't be able to sleep. Taught pt relaxation techniques, administered medications and provided a quiet environment to promote sleep. Denies chest pain or SOB.
--- NOTE | 2018-03-22 07:40 | NUR ---
Receive pt awake, alert and oriented times 3. Pt states no pain at this time . No s/s of SOB, distress or discomfort. call light with in reach
[2018-03-22] MEDS: QUETIAPINE FUMARATE 25 MG TABLET PO SCH ×2 (08:07→21:02)
[2018-03-22] MEDS: ASPIRIN EC 81 MG TABLET.DR PO SCH (08:07)
[2018-03-22] MEDS: CYANOCOBALAMIN 1,000 MCG TABLET PO SCH (08:07)
[2018-03-22] MEDS: MIRALAX 17 GM POWD.PACK PO SCH (08:07)
[2018-03-22] MEDS: CALCIUM CARB/VITAMIN D 600-400 MG TABLET PO SCH (08:07)
[2018-03-22] MEDS: LOSARTAN POTASSIUM 50 MG TABLET PO SCH ×2 (08:07→21:00)
[2018-03-22 08:51] VITALS: BP 150/62
[2018-03-22 15:04] VITALS: BP 126/56
--- NOTE | 2018-03-22 19:25 | NUR ---
PT RECEIVED IN BED, AWAKE. A/OX3. ABLE TO MAKE NEEDS KNOWN. PT PLEASANT ON APPROACH. V/S STABLE. IN NO ACUTE DISTRESS. NO C/O PAIN AT THIS TIME. ON ROOM AIR. AFEBRILE. SAFETY MEASURES IMPLEMENTED. CALL LIGHT WITHIN REACH.
[2018-03-22 20:00] VITALS: BP 129/53
[2018-03-22] MEDS: MIRTAZAPINE 15 MG TABLET PO SCH (21:02)
[2018-03-22] MEDS: SIMVASTATIN 10 MG TABLET PO SCH (21:03)
[2018-03-22] MEDS: TEMAZEPAM 7.5 MG CAPSULE PO PRN (21:04)
[2018-03-23 04:48] VITALS: BP 140/51
--- NOTE | 2018-03-23 05:30 | NUR ---
END OF SHIFT NOTES. PT SLEPT WELL THROUGHOUT SHIFT. 8 HOURS OF SLEEP NOTED. COMPLIANT WITH CARE. ALL NEEDS ATTENDED. SAFETY MAINTAINED. CALL LIGHT REMAINS WITHIN REACH.
[2018-03-23] MEDS: PANTOPRAZOLE SODIUM 40 MG TABLET.DR PO SCH ×2 (06:33→16:19)
[2018-03-23] MEDS: LEVOTHYROXINE SODIUM 88 MCG TABLET PO SCH (06:33)
--- NOTE | 2018-03-23 07:20 | NUR ---
Receive pt awake, alert and oriented times 3. Pt states no pain at this time . No s/s of SOB, distress or discomfort. call light with in reach breakfast served
[2018-03-23] MEDS: CYANOCOBALAMIN 1,000 MCG TABLET PO SCH (08:05)
[2018-03-23] MEDS: QUETIAPINE FUMARATE 25 MG TABLET PO SCH ×2 (08:05→20:53)
[2018-03-23] MEDS: CALCIUM CARB/VITAMIN D 600-400 MG TABLET PO SCH (08:05)
[2018-03-23] MEDS: LOSARTAN POTASSIUM 50 MG TABLET PO SCH ×2 (08:06→20:53)
[2018-03-23] MEDS: BISACODYL 10 MG SUPP.RECT RC SCH ×2 (08:06→08:15)
[2018-03-23] MEDS: ASPIRIN EC 81 MG TABLET.DR PO SCH (08:06)
[2018-03-23] MEDS: MIRALAX 17 GM POWD.PACK PO SCH ×2 (08:06→08:15)
[2018-03-23] MEDS: CLONAZEPAM 0.5 MG TABLET PO PRN ×2 (10:12→22:28)
[2018-03-23 11:01] VITALS: BP 137/58
--- NOTE | 2018-03-23 15:00 | NUR ---
PT SEEN BY DR FRANKLIN
[2018-03-23 15:07] VITALS: BP 132/64
--- NOTE | 2018-03-23 15:19 | NUR ---
Spoke to the patient and her sister, Tatyana [ ], about the patient's discharge plan. They agreed for her to be discharged to [facility] [ ; [address] [place] [address]] and she will be hiring a private caregiver - Felicia Fletcher [ ] to stay with her at the SNF. Also spoke to Vivienne, admissions from [facility], and she confirmed that they will admit the patient once stable. She requested a private room and Vivienne confirmed that as well. Updated her SW, Damaris Ling, on her discharge plan, as well as her nurse, Maryan.
[2018-03-23] MEDS ORDERED: SORBITOL 70% SOLUTION 30 ML UDC PO ONE (17:00)
--- NOTE | 2018-03-23 19:25 | NUR ---
PT RECEIVED IN BED, ASLEEP. WAKES TO NAME. PLEASANT ON APPROACH. ASKS FOR LIGHTS TO REMAIN OFF. A/OX3. V/S STABLE. IN NO ACUTE DISTRESS. NO C/O PAIN AT THIS TIME. PT ON 1LNC PRN, BUT REQUEST TO REMOVE DURING SLEEP. PT O2SAT 95% ON RA. AFEBRILE. SAFETY MEASURES IMPLEMENTED. BED ALARM SET. CALL LIGHT PLACED WITHIN REACH.
[2018-03-23 20:33] VITALS: BP 130/59
[2018-03-23] MEDS: MIRTAZAPINE 15 MG TABLET PO SCH (20:53)
[2018-03-23] MEDS: SIMVASTATIN 10 MG TABLET PO SCH (20:53)
[2018-03-23] MEDS: TEMAZEPAM 7.5 MG CAPSULE PO PRN (20:54)
--- NOTE | 2018-03-23 22:30 | NUR ---
PT STATES SHE IS UNABLE TO SLEEP, FEELS VERY ANXIOUS AND RESTLESS IN BED. SYED ADMIN PER MD ORDER.
--- NOTE | 2018-03-24 05:55 | NUR ---
END OF SHIFT NOTES. PT SLEPT WELL THROUGHOUT SHIFT. 8 HOURS TOTAL. COMPLIANT WITH ALL NURSING CARE. ALL NEEDS ATTENDED. SAFETY MAINTAINED. CALL LIGHT REMAINS IN REACH.
[2018-03-24] MEDS: LEVOTHYROXINE SODIUM 88 MCG TABLET PO SCH (06:23)
[2018-03-24] MEDS: PANTOPRAZOLE SODIUM 40 MG TABLET.DR PO SCH (06:25)
[2018-03-24 06:26] VITALS: BP 138/74
--- NOTE | 2018-03-24 07:30 | NUR ---
Bedside shift report given by nightshift RN. Pt admitted for Anxiety disorder. Pt in bed awake, watching television. No s/s of acute distress noted. Denies pain at this time. Pt pleasantly waiting for her breakfast. Per report, no episode of anxiety last night. Appears comfortable at this time. Will continue to monitor.
[2018-03-24 08:00] VITALS: BP 113/67
--- NOTE | 2018-03-24 08:06 | NUR ---
Discharge Note: Patient will be discharged to [facility] [ ; [address] [place] [address]] via private transportation between 10 and 10:30am. Spoke with patient's caregiver, Felicia Fletcher ( ) who is agreeable with providing transportation and is aware of discharge plans. Spoke with Vivienne and Izabella at the facility who state they are ready to accept the patient today. Patient is aware and agreeable with discharge plans. Spoke with patient's sister, Tatyana ([phone]) and patient's son, Dennys Calixto ([phone]) who are both aware and agreeable with discharge plans. Patient will follow-up at the facility with Dr. Pelayo (Life Science Research Assistant) and Dr. Allen (Psychiatrist).
[2018-03-24] MEDS: ACETAMINOPHEN 325 MG TABLET PO PRN (08:13)
[2018-03-24 08:14] VITALS: BP 113/67
[2018-03-24] MEDS: QUETIAPINE FUMARATE 25 MG TABLET PO SCH (08:14)
[2018-03-24] MEDS: CLONAZEPAM 0.5 MG TABLET PO PRN (08:14)
[2018-03-24] MEDS: ASPIRIN EC 81 MG TABLET.DR PO SCH (08:14)
[2018-03-24] MEDS: CYANOCOBALAMIN 1,000 MCG TABLET PO SCH (08:14)
[2018-03-24] MEDS: CALCIUM CARB/VITAMIN D 600-400 MG TABLET PO SCH (08:14)
[2018-03-24] MEDS: LOSARTAN POTASSIUM 50 MG TABLET PO SCH (08:14)
[2018-03-24] MEDS: MIRALAX 17 GM POWD.PACK PO SCH (08:14)
--- NOTE | 2018-03-24 11:00 | NUR ---
Pt discharged to [facility] accompanied by Caregiver Yadira. Report given to Maggie FRYE. Pt in fair condition. Denies SI/HI. Denies feeling anxious at this time. All discharge summary and instructions endorsed to patient and her caregiver. No acute distress noted. All belongings returned. ID band removed. Assisted to exit by staff.
== END 2018-03-24 11:20 | DRG 885 ==
LOC: GPS 14:29 → GPSOV 03-20 20:21
PROVIDERS: ADMIT Psychiatry & Neurology Psychiatry; ATTEND Internal Medicine
DX: F33.1 Major depressive disorder, recurrent, moderate (principal); N17.9 Acute kidney failure, unspecified; F41.1 Generalized anxiety disorder; G47.00 Insomnia, unspecified; K21.9 Gastro-esophageal reflux disease without esophagitis; K59.00 Constipation, unspecified; R10.13 Epigastric pain; Z88.0 Allergy status to penicillin; Z88.2 Allergy status to sulfonamides; I10 Essential (primary) hypertension
CPT/HCPCS: 36415; 83690; 84443; 85025; A4663